=== PATIENT | male | born 1990 | race African-American/Black ===

== ENCOUNTER → 2018-02-25 | Outpatient (CLI) | payer OTHER ==
[2018-02-25 11:10] LABS: COLLAGEN EPINEPHRINE 121 SECONDS (74-162)
== END ==
LOC: M LAB 10:16
DX: H50.05 Alternating esotropia (principal)

== ENCOUNTER → 2020-11-04 | Outpatient (CLI) | payer OTHER ==
[2020-11-04 09:38] LABS: COLLAGEN EPINEPHRINE 134 SECONDS (74-162)
== END ==
LOC: M LAB 08:44
PROVIDERS: ATTEND Ophthalmology
DX: H50.05 Alternating esotropia (principal)